=== PATIENT | female | born 1965 | race Caucasian/White ===

== ENCOUNTER 2021-02-16 12:26 | Emergency (ER) | payer BC, OTHER ==
[~2021-02-16] VITALS: Ht 170 cm; Wt 103.0 kg
[2021-02-16] MEDS ORDERED: HYDROcodone/APAP 5 MG/325 MG (LORTAB) TAB PO ONE (13:00)
[2021-02-16] MEDS ORDERED: IBUPROFEN 600 MG (MOTRIN) TAB PO ONE (13:00)
[2021-02-16 13:20] LABS: BASOPHILS # (AUTO) 0.1 10^3/uL (0.0-0.1); BASOPHILS % (AUTO) 1 % (0-10); EOSINOPHILS # (AUTO) 0.1 10^3/uL (0.0-0.3); EOSINOPHILS % (AUTO) 1 % (0-10); HEMATOCRIT 40 % (35-52); LYMPHOCYTES # (AUTO) 2.5 X 10^3 (1.0-4.0); LYMPHOCYTES % (AUTO) 37 % (12-44); MEAN CORPUSCULAR HEMOGLOBIN 29 PG (25-34); MEAN CORPUSCULAR HGB CONC 33 G/DL (32-36); MEAN CORPUSCULAR VOLUME 89 FL (80-99); MEAN PLATELET VOLUME 9.3 FL (7.4-10.4); MONOCYTES # (AUTO) 0.7 X 10^3 (0.0-1.0); MONOCYTES % (AUTO) 9 % (0-12); NEUTROPHILS # (AUTO) 3.6 X 10^3 (1.8-7.8); NEUTROPHILS % (AUTO) 51 % (42-75); PLATELET COUNT 419 10^3/uL (130-400); WHITE BLOOD COUNT 6.9 10^3/uL (4.3-11.0)
[2021-02-16 13:36] LABS: CREATININE SERUM 0.87 MG/DL (0.60-1.30); POTASSIUM 4.1 MMOL/L (3.6-5.0)
[2021-02-16 13:37] LABS: ALBUMIN 4.1 GM/DL (3.2-4.5); BILIRUBIN,TOTAL 0.3 MG/DL (0.1-1.0); CALCIUM 8.8 MG/DL (8.5-10.1); TOTAL PROTEIN 7.3 GM/DL (6.4-8.2)
--- NOTE | 2021-02-16 13:50 | Diagnostic Imaging Report ---
PROCEDURE: US venous upper extremity left. TECHNIQUE: Multiple real-time grayscale images were obtained of left upper extremity in various projections. Additional spectral analysis and color Doppler duplex images were also obtained. INDICATION: Left arm pain and swelling. FINDINGS: Grayscale and color Doppler evaluation of left upper extremity deep veins reveal no intraluminal filling defect. There is normal venous flow. There is normal compressibility and response to augmentation. IMPRESSION: No ultrasound evidence of left upper extremity deep venous thrombosis. Dictated by: Dictated on workstation # [id number]
--- NOTE | 2021-02-16 13:56 | ED Upper Extremity ---
General Chief Complaint: Upper Extremity Stated Complaint: LT ARM PAIN Nursing Triage Note: LEFT ARM PAIN AFTER A BLOOD DRAW LAST WEEK IN [place], [place]. History of Present Illness Date Seen by Provider: Feb 16, 2021 Time Seen by Provider: 13:51 Initial Comments Patient presenting to the emergency department for evaluation of left arm pain that has been going on for the past 6 days after having her blood drawn at an outside facility. She says she feels swelling in the left arm and is painful to move and she gets intermittent cramping as well. She denies fevers chills nausea vomiting weakness numbness or tingling. She has been using Aleve with intermittent ice and heat. She feels that the symptoms are not getting any better so she called her primary care provider and they told her to come to the emergency department to rule out infection and DVT. She is in no acute distress with normal vital signs. Allergies and Home Medications Allergies Coded Allergies: cefazolin (Verified Allergy, Mild, 02/16/21) nickel (Verified Allergy, Unknown, 02/16/21) Patient Home Medication List Home Medication List Reviewed: Yes Review of Systems Constitutional: no symptoms reported Respiratory: no symptoms reported Cardiovascular: no symptoms reported Gastrointestinal: no symptoms reported Musculoskeletal: muscle pain, muscle cramps Skin: no symptoms reported All Other Systems Reviewed Negative Unless Noted: Yes Past Uegmgvi-Lmrjay-Qioxmu Hx Patient Social History Tobacco Use?: No Use of E-Cig and/or Vaping dev: No Substance use?: No Alcohol Use?: No Pt feels they are or have been: No Physical Exam Vital Signs Vital Signs - First Documented 02/16/21 12:28 Temp 36.2 Pulse 75 Resp 16 B/P (MAP) 142/78 (99) Pulse Ox 99 O2 Delivery Room Air Capillary Refill : Less Than 3 Seconds Height, Weight, BMI Height: '" Weight: lbs. oz. kg; 35.00 BMI Method: General Appearance: WD/WN, no apparent distress Cardiovascular: regular rate, rhythm Respiratory: no respiratory distress Elbow/Forearm: non-tender, no evidence of injury, normal ROM, Bilateral, swelling (Slightly more swollen left arm at the distal biceps and proximal forearm but compartments are soft and there is no erythema or significant tenderness to palpation) Neurologic/Tendon: normal sensation, normal motor functions Neurologic/Psychiatric: no motor/sensory deficits Skin: normal color, warm/dry Progress/Results/Core Measures Results/Orders Lab Results Laboratory Tests Test 02/16/21 13:10 Range/Units White Blood Count 6.9 4.3-11.0 10^3/uL Red Blood Count 4.47 4.35-5.85 10^6/uL Hemoglobin 13.0 11.5-16.0 G/DL Hematocrit 40 35-52 % Mean Corpuscular Volume 89 80-99 FL Mean Corpuscular Hemoglobin 29 25-34 PG Mean Corpuscular Hemoglobin Concent 33 32-36 G/DL Red Cell Distribution Width 12.6 10.0-14.5 % Platelet Count 419 H 130-400 10^3/uL Mean Platelet Volume 9.3 7.4-10.4 FL Immature Granulocyte % (Auto) 0 % Neutrophils (%) (Auto) 51 42-75 % Lymphocytes (%) (Auto) 37 12-44 % Monocytes (%) (Auto) 9 0-12 % Eosinophils (%) (Auto) 1 0-10 % Basophils (%) (Auto) 1 0-10 % Neutrophils # (Auto) 3.6 1.8-7.8 X 10^3 Lymphocytes # (Auto) 2.5 1.0-4.0 X 10^3 Monocytes # (Auto) 0.7 0.0-1.0 X 10^3 Eosinophils # (Auto) 0.1 0.0-0.3 10^3/uL Basophils # (Auto) 0.1 0.0-0.1 10^3/uL Immature Granulocyte # (Auto) 0.0 0.0-0.1 10^3/uL Sodium Level 140 135-145 MMOL/L Potassium Level 4.1 3.6-5.0 MMOL/L Chloride Level 106 98-107 MMOL/L Carbon Dioxide Level 20 L 21-32 MMOL/L Anion Gap 14 5-14 MMOL/L Blood Urea Nitrogen 9 7-18 MG/DL Creatinine 0.87 0.60-1.30 MG/DL Estimat Glomerular Filtration Rate 68 BUN/Creatinine Ratio 10 Glucose Level 101 70-105 MG/DL Calcium Level 8.8 8.5-10.1 MG/DL Corrected Calcium 8.7 8.5-10.1 MG/DL Total Bilirubin 0.3 0.1-1.0 MG/DL Aspartate Amino Transf (AST/SGOT) 25 5-34 U/L Alanine Aminotransferase (ALT/SGPT) 20 0-55 U/L Alkaline Phosphatase 76 40-136 U/L Total Protein 7.3 6.4-8.2 GM/DL Albumin 4.1 3.2-4.5 GM/DL My Orders Orders - [facility]I ALVARADO DO Cbc With Automated Diff (02/16/21 12:58) Comprehensive Metabolic Panel (02/16/21 12:58) Us Venous Upper Ext Left (02/16/21 12:58) Hydrocodone/Apap 5/325 Tablet (Lortab 5 (02/16/21 13:00) Ibuprofen Tablet (Motrin Tablet) (02/16/21 13:00) Medications Given in ED Current Medications Medications Dose Ordered Sig/Julissa Route Start Time Stop Time Status Last Admin Dose Admin Acetaminophen/ Hydrocodone Bitart 2 ea ONCE ONCE PO 02/16/21 13:00 02/16/21 13:01 DC 02/16/21 13:07 2 EA Ibuprofen 600 mg ONCE ONCE PO 02/16/21 13:00 02/16/21 13:01 DC 02/16/21 13:08 600 MG Vital Signs/I&O 02/16/21 12:28 Temp 36.2 Pulse 75 Resp 16 B/P (MAP) 142/78 (99) Pulse Ox 99 O2 Delivery Room Air Blood Pressure Mean: 99 Progress Progress Note : Progress Note Patient has normal labs with no signs of DVT on the ultrasound. She has a normal neurovascular exam with normal sensation and equal and 2+ radial pulses bilaterally. I told her the differential diagnosis is quite wide but there is no signs of acute process going on with no signs of DVT arterial occlusion infection at this time. I told her that she should follow-up with her primary care provider later this week for recheck but at this time to use rice precautio ns NSAIDs and come back to the ED sooner with worsening pain neurologic changes or other general concerns. Patient aware and agreeable with plan and verbalized understanding of the above instructions. Departure Impression Primary Impression: Muscle cramps Additional Impression: Left arm pain Disposition: HOME, SELF-CARE Condition: Stable Departure-Patient Inst. Referrals: NO,LOCAL PHYSICIAN (PCP/Family) Primary Care Physician Patient Instructions: Muscle Spasms (DC) Add. Discharge Instructions: Rest Ice Compression Elevation Nsaids Follow with PCP later this week or early next week Thank you! All discharge instructions reviewed with patient and/or family. Voiced phillip olvera. Scripts Diazepam (Valium) 5 Mg Tablet 5 MG PO Q6H PRN for SPASMS for 2 Days, #8 TAB Prov: [facility]I ALVARADO DO 02/16/21 Ibuprofen (Ibuprofen) 600 Mg Tablet 600 MG PO Q6H for 5 Days, #20 TAB Prov: NHI ALVARADO DO 02/16/21 NHI ALVARADO DO Feb 16, 2021 13:56
[2021-02-16] MEDS ORDERED: IBUP-1773 PO (14:04)
[2021-02-16] MEDS ORDERED: DIAZ5TAB PO (14:04)
[2021-02-16 14:09] VITALS: BP 130/62
== END 2021-02-16 14:10 | disposition home or self-care (01) ==
LOC: ER FS 12:28
DX: R25.2 Cramp and spasm (principal); M79.602 Pain in left arm
CPT/HCPCS: 36415; 80053; 85025

== ENCOUNTER → 2021-09-24 | Outpatient (CLI) | payer BC ==
[~2021-09-24] MED LIST: DIAZ5TAB PO; IBUP-1773 PO
[2021-09-24 10:39] LABS: BASOPHILS # (AUTO) 0.1 10^3/uL (0.0-0.1); BASOPHILS % (AUTO) 1 % (0-10); EOSINOPHILS # (AUTO) 0.1 10^3/uL (0.0-0.3); EOSINOPHILS % (AUTO) 1 % (0-10); HEMATOCRIT 40 % (35-52); HEMOGLOBIN 13.2 g/dL (11.5-16.0); LYMPHOCYTES # (AUTO) 2.5 10^3/uL (1.0-4.0); LYMPHOCYTES % (AUTO) 28 % (12-44); MEAN CORPUSCULAR HEMOGLOBIN 29 pg (25-34); MEAN CORPUSCULAR HGB CONC 33 g/dL (32-36); MEAN CORPUSCULAR VOLUME 88 fL (80-99); MEAN PLATELET VOLUME 9.1 fL (9.0-12.2); MONOCYTES # (AUTO) 0.9 10^3/uL (0.0-1.0); MONOCYTES % (AUTO) 10 % (0-12); NEUTROPHILS # (AUTO) 5.5 10^3/uL (1.8-7.8); NEUTROPHILS % (AUTO) 60 % (42-75); PLATELET COUNT 436 10^3/uL (130-400); WHITE BLOOD COUNT 9.1 10^3/uL (4.3-11.0)
[2021-09-24 11:03] LABS: BUN/CREATININE RATIO 10; CARBON DIOXIDE 21 MMOL/L (21-32); CHLORIDE 104 MMOL/L (98-107); CREATININE SERUM 0.79 MG/DL (0.60-1.30); GFR ESTIMATED 88; POTASSIUM 4.3 MMOL/L (3.6-5.0); SODIUM 137 MMOL/L (135-145)
[2021-09-24 11:04] LABS: ALANINE AMINOTRANSFERASE 19 U/L (0-55); ALBUMIN 4.2 GM/DL (3.2-4.5); ALKALINE PHOSPHATASE 93 U/L (40-136); BILIRUBIN,TOTAL 0.2 MG/DL (0.1-1.0); CALCIUM 9.2 MG/DL (8.5-10.1); GLUCOSE 101 MG/DL (70-105); LIPASE 47 U/L (8-78); TOTAL PROTEIN 7.5 GM/DL (6.4-8.2)
== END ==
LOC: LAB FS 10:16
PROVIDERS: ATTEND Registered Nurse Emergency
DX: R10.13 Epigastric pain (principal); R10.10 Upper abdominal pain, unspecified
CPT/HCPCS: 36415; 80053; 83690; 84484; 85025

== ENCOUNTER → 2021-11-15 | Outpatient (CLI) | payer BC ==
--- NOTE | 2021-11-15 14:51 | Diagnostic Imaging Report ---
INDICATION: Cough. TIME OF EXAM: 2:30 PM. COMPARISON: No prior studies are available for comparison. FINDINGS: The heart size is normal. The pulmonary vascularity is unremarkable. The lungs are clear. No infiltrate, effusion, or pneumothorax is detected. IMPRESSION: No acute cardiopulmonary process is detected. Dictated by: Dictated on workstation # [id number]
== END ==
LOC: RAD FS 14:15
PROVIDERS: ATTEND Registered Nurse Emergency
DX: R05.9 Cough, unspecified (principal)
CPT/HCPCS: 71046

== ENCOUNTER → 2021-11-15 | Outpatient (CLI) | payer BC | LOC: LABNPT 15:22 | PROVIDERS: ATTEND Registered Nurse Emergency | DX: J06.9 Acute upper respiratory infection, unspecified (principal); R05.9 Cough, unspecified; Z20.822 Contact with and (suspected) exposure to COVID-19 | CPT/HCPCS: 87636 ==

== ENCOUNTER → 2021-12-02 | Outpatient (CLI) | payer BC | LOC: LABNPT 15:50 | PROVIDERS: ATTEND Registered Nurse Emergency | DX: Z20.822 Contact with and (suspected) exposure to COVID-19 (principal) | CPT/HCPCS: 87070; 87077; 87636 ==

== ENCOUNTER → 2022-02-02 | Outpatient (CLI) | payer BC | LOC: LABNPT 15:14 | PROVIDERS: ATTEND Registered Nurse Emergency | DX: Z20.822 Contact with and (suspected) exposure to COVID-19 (principal) | CPT/HCPCS: 87636 ==

== ENCOUNTER → 2022-05-24 | Outpatient (CLI) | payer BC | LOC: LABNPT 14:43 | PROVIDERS: ATTEND Registered Nurse Emergency | DX: Z01.89 Encounter for other specified special examinations (principal) | CPT/HCPCS: 87077; 87088 ==

== ENCOUNTER → 2022-06-22 | Outpatient (CLI) | payer BC | LOC: GIR 15:27 | PROVIDERS: ATTEND Registered Nurse Emergency | DX: R05.1 Acute cough (principal); Z20.822 Contact with and (suspected) exposure to COVID-19 | CPT/HCPCS: 87636 ==